=== PATIENT | female | born 1945 | race Caucasian/White ===

== ENCOUNTER → 2019-05-11 13:54 | Outpatient (CLI) | payer MEDICARE, SELFPAY ==
--- NOTE | ~2019-05-11 | US_ITS ---
US thyroid INDICATION: Dysphasia and enlarged thyroid. TECHNIQUE: Real-time sonographic images of the thyroid gland were obtained. COMPARISON: Ultrasound dated 06/22/2016 FINDINGS: The right thyroid lobe measures 6.2 x 4 x 3.2 cm. The left thyroid lobe measures 4.8 x 2 x 1.2 cm. In the right lobe there is a complex mass which is partially solid and cystic measuring 4 x 3.7 x 3.2 cm compared with 3.9 x 3.3 x 3.3 cm on prior examination. In the left lobe there is a 7 mm hypoechoic nodule, likely benign. IMPRESSION: 1. Multinodular goiter. Slight increased size of dominant right complex thyroid mass measuring 4 cm maximum dimension. Ultrasound-guided fine-needle aspiration biopsy recommended. Reviewed, dictated and finalized at location A. MAN IMPRESSION: 1. Multinodular goiter. Slight increased size of dominant right complex thyroi d mass measuring 4 cm maximum dimension. Ultrasound-guided fine-needle aspirati on biopsy recommended.
== END ==
PROVIDERS: PCP Internal Medicine; Visit Provider Otolaryngology
DX: E04.2 Nontoxic multinodular goiter (principal)
CPT/HCPCS: 76536

== ENCOUNTER → 2020-05-16 15:06 | Outpatient (CLI) | payer MEDICARE, SELFPAY ==
--- NOTE | ~2020-05-16 | MM_ITS ---
EXAMINATION: MM screening [facility] BI w kobe HISTORY: Screening mammogram TECHNIQUE: Craniocaudal and mediolateral oblique 3-D tomosynthesis images were obtained and synthetic 2-D images were generated. CAD analysis was submitted and interpreted. COMPARISON: 03/20/2019, 02/22/2019, 07/04/2014 BREAST PARENCHYMAL COMPOSITION: The breasts are almost entirely fatty. FINDINGS: A stable asymmetry is present in the inner left breast on the craniocaudal view. There is n o evidence of suspicious mass, calcification, or architectural distortion to suggest malignancy in ei ther breast. There has been no suspicious interval change. IMPRESSION: 1. No mammographic evidence of malignancy. 2. Recommend routine screening mammography in one year. BI-RADS Category 2: Benign finding(s). Reviewed, dictated and finalized at location A. OP INFRASTRUCTURE ARCHITECT
== END ==
PROVIDERS: PCP Internal Medicine; Visit Provider Internal Medicine
DX: Z12.31 Encounter for screening mammogram for malignant neoplasm of breast (principal)
CPT/HCPCS: 77063; 77067

== ENCOUNTER 2020-08-22 09:18 | Outpatient (CLI) | payer MEDICARE, SELFPAY ==
--- NOTE | ~2020-08-22 | US_ITS ---
EXAMINATION: US abdomen limited DATE: 08/22/2020 09:58 INDICATION: Abnormal liver function tests. TECHNIQUE: Multiple grayscale and Doppler ultrasound images of the abdomen were obtained. COMPARISON: None FINDINGS: The visualized portions of the head and body of the pancreas are normal. The liver is phyllis l without focal lesion. No liver surface nodularity. There is normal flow in main portal vein. The ga llbladder is contracted. No gallstones or sonographic Vega sign. The common duct is dilated to 11 m m. IMPRESSION: 1. Dilated common duct. Consider MRCP without and with contrast. Reviewed, dictated and finalized at location B.
== END 2020-08-22 09:19 | disposition home or self-care (01) ==
LOC: ANHIMG 09:18
PROVIDERS: PCP Internal Medicine; Visit Provider Nurse Practitioner
DX: R79.89 Other specified abnormal findings of blood chemistry (principal)
CPT/HCPCS: 76705

== ENCOUNTER 2021-03-03 14:37 | Outpatient (CLI) | payer MEDICARE, SELFPAY ==
--- NOTE | ~2021-03-03 | US_ITS ---
EXAMINATION: US thyroid DATE: 03/03/2021 15:06 INDICATION: Nontoxic single thyroid nodule. TECHNIQUE: Multiple ultrasound images of the thyroid were obtained. COMPARISON: Ultrasound 05/11/2019, 06/22/16 FINDINGS: The right thyroid lobe measures 5.5 x 3.3 x 4.2 cm. The left thyroid lobe measures 4.5 x 1.7 x 1.2 c m. In the right thyroid lobe, there is a 4.2 cm mixed cystic and solid, hypoechoic, rsyhm-jgus-lpzj nodule with irregular margin without echogenic foci (TI-RADS TR4). In the left thyroid lobe, there is a 6 mm mixed cystic and solid, hypoechoic, bnivy-hazr-phau nodule with lobular margin without echoge miki foci (TR4). IMPRESSION: 1. Thyroid nodules, stable from 06/22/2016, likely benign. Reviewed, dictated and finalized at location B. S PLANNING COORDINATOR
== END 2021-03-03 14:38 | disposition home or self-care (01) ==
LOC: ANHIMG 14:40
PROVIDERS: PCP Internal Medicine; Visit Provider Nurse Practitioner
DX: E04.2 Nontoxic multinodular goiter (principal)
CPT/HCPCS: 76536

== ENCOUNTER → 2021-07-22 13:43 | Outpatient (CLI) | payer MEDICARE, SELFPAY ==
--- NOTE | ~2021-07-22 | MM_ITS ---
EXAMINATION: MM screening [facility] BI w kobe HISTORY: Screening mammogram TECHNIQUE: Craniocaudal and mediolateral oblique 3-D tomosynthesis images were obtained and synthetic 2-D images were generated. CAD analysis was submitted and interpreted. COMPARISON: May 16, 2020 bilateral screening mammogram 03/30/2019 diagnostic left mammogram and limited left breast ultrasound 02/22/2019 bilateral screening mammogram BREAST PARENCHYMAL COMPOSITION: There are scattered areas of fibroglandular density. FINDINGS: There is no evidence of suspicious mass, calcification, or architectural distortion to sugg est malignancy in either breast. There has been no suspicious interval change. IMPRESSION: 1. No mammographic evidence of malignancy. 2. Recommend routine screening mammography in one year. BI-RADS Category 1: Negative Reviewed, dictated and finalized at location A.
== END ==
PROVIDERS: PCP Internal Medicine; Visit Provider Internal Medicine
DX: Z12.31 Encounter for screening mammogram for malignant neoplasm of breast (principal)
CPT/HCPCS: 77063; 77067

== ENCOUNTER 2021-08-26 14:55 | Outpatient (CLI) | payer MEDICARE, SELFPAY ==
--- NOTE | ~2021-08-26 | DEXA_ITS ---
Bone Density Report Name: ARIEL GUAJARDO Age: 76 Sex: Female Ethnicity: White Date of : 1945 Indication: postmenopausal; screening for osteoporosis; height loss; Referring Provider: PATRICIO HERNANDEZ Study: Bone densitometry was performed. Exam Date: August 26, 2021 Accession number: [id number] Bone Density: Region BMD T-score Z-score Classification AP Spine(L1, L4) 1.374 3.1 5.4 Normal Femoral Neck (Left) 0.697 -1.4 0.7 Osteopenia Total Hip (Left) 0.810 -1.1 0.7 Osteopenia Femoral Neck (Right) 0.659 -1.7 0.3 Osteopenia Total Hip (Right) 0.871 -0.6 1.2 Normal Total Hip Mean 0.840 -0.9 1.0 Normal World Health Organization criteria for BMD impression classify patients as: Normal (T-score at or above -1.0), Osteopenia (T-score between -1.0 and -2.5), or Osteoporosis (T-score at or below -2.5). 10-year Fracture Risk(1): Major Osteoporotic Fracture 11% Hip Fracture 2.3% Reported Risk Factors: [place] (), Neck BMD=0.659, BMI=31.3 (1) FRAX(R) Version 3.08. Fracture probability calculated for an untreated patient. Fracture probability may be lower if the patient has received treatment. Clinical Information Provided by Patient: Patient maximum height was 61 Menopause Age: 52 Drinks caffeinated beverages Onset of menses at age 17 Number of children 0 Impression: The patient has low bone mass, based on the Right Femoral Neck T-score. The patient has an estimated ten-year risk of hip fracture of 2.3% and an estimated ten-year risk of major fracture of 11%, based on the WHO FRAX algorithm. Discussion: BONE DENSITY IS LOW AT ONE OR MORE SKELETAL SITES. This patient's lowest T-score is low at one or more skeletal sites. It meets the World Health Organization's (WHO) criteria for ?low bone mass? (T-score between -1.0 and -2.5). The patient's 10-year risk of fracture as calculated by FRAX is less than the threshold where pharmacological therapy is recommended by the National Osteoporosis Foundation (NOF). However, all treatment decisions require clinical judgment and consideration of individual patient factors, including patient preferences, comorbidities, previous drug use, risk factors not captured in the FRAX model (e.g., frailty, falls, vitamin D deficiency, increased bone turnover, interval significant decline in bone density) and possible under or overestimation of fracture risk by FRAX. The patient should follow a healthful lifestyle (good nutrition with adequate calcium and vitamin D, and appropriate weight-bearing exercise). Follow-Up: Consider repeating this study in 2 to 3 years to reassess this patient's status, or sooner if there is some new clinical indication. Reported by: [facility] on 08/26/2021 3:22:00 PM.
== END 2021-08-26 14:56 | disposition home or self-care (01) ==
LOC: ANHIMG 15:00
PROVIDERS: PCP Internal Medicine; Visit Provider Nurse Practitioner
DX: Z78.0 Asymptomatic menopausal state (principal); M85.852 Other specified disorders of bone density and structure, left thigh; M85.851 Other specified disorders of bone density and structure, right thigh
CPT/HCPCS: 77080

== ENCOUNTER 2022-05-11 16:20 | Emergency (ER) | payer MEDICARE, SELFPAY ==
[2022-05-11 16:23] VITALS: BP 181/88; PULSE 105; RESP 15; TEMP 36.9; O2SAT 100
--- NOTE | 2022-05-11 17:04 | ED.GENADULT ---
HPI - General Adult General Chief complaint: Extremity Problem,Nontraumatic Stated complaint: back pain Time Seen by Provider: 05/11/22 16:51 History of Present Illness HPI narrative: 36-year-old female history of hypertension presents to the emergency room for evaluation of lower back pain. Patient states she has been experiencing low back pain that radiates into her right leg and terminates at her mccall for 2 days. Denies any injury or trauma. States ambulation makes the pain worse. Patient describes the pain as a shooting sensation. Patient does admit to a history of sciatica. Denies any difficulties or changes to her bowel or bladder habits. No numbness or tingling lower extremities. No saddle anesthesia. Related Data Home Medications Medication Instructions Recorded Confirmed aspirin 81 mg tablet,delayed 81 mg PO DAILY 08/09/19 04/16/22 release (Aspir-) omega-3 fatty acids 1,000 mg 1,000 mg PO BID 08/09/19 04/16/22 capsule (Fish Oil Concentrate) ibuprofen 200 mg tablet 200 mg PO Q6H PRN 08/10/19 04/16/22 calcium carbonate 500 mg calcium 500 mg PO DAILY 03/10/22 04/16/22 (1,250 mg) tablet Allergies Allergy/AdvReac Type Severity Reaction Status Date / Time No Known Allergies Allergy Verified 04/16/22 14:15 Review of Systems Review of Systems: CONSTITUTIONAL: Denies fever, chills, or sweats. EYES: Denies visual changes, redness, or discharge. ENT: Denies rhinorrhea, congestion, sore throat, or otalgia. CARDIOVASCULAR: Denies chest pain, palpitations, or edema. RESPIRATORY: Denies cough or dyspnea. GASTROINTESTINAL: Denies abdominal pain, nausea, vomiting, or diarrhea. GENITOURINARY: Denies dysuria or hematuria. SKIN: Denies rash or itching. MUSCULOSKELETAL: Reports lower back pain NEUROLOGIC: Denies headache, numbness, dizziness, or weakness. PSYCHIATRIC: Denies anxiety or depression. [facility] Past Medical History Medical History Back pain Shoulder pain Thyroid nodule Surgical History Surgical History History of hernia repair Hx of cataract surgery Family History Family History Father Family history of diabetes mellitus in first degree relative Sibling Family history of diabetes mellitus in first degree relative Social History Social History Smoking status: Never smoker Second hand tobacco smoke exposure: No Alcohol intake: never Substance use: never Substance use type: does not use Lack of Transportation: No Lack of Food: Never True Current Housing: I Have Housing Concerned About Future Housing: No Difficulty Paying Gas/Electric Bills: No Difficulty Paying for Meds: No Currently Unemployed: No Education: High School Diploma/GED Difficulty w/ Childcare or Family Care: No Exam Narrative: GENERAL: Well-appearing, well-nourished, no physical limitations, and in no acute distress. HEAD: Normocephalic, atraumatic. EYES: Conjunctivae normal, PERRLA and EOMI. CHEST: Clear to auscultation. No respiratory distress. No wheezes rales or rhonchi. HEART: Regular rate and rhythm. No murmur heard. Normal peripheral pulses. BACK: No midline lumbar tenderness, step-offs, bony abnormality; LROM with rotation and lateral bend. +SLE RLE. Neurovascular is intact distally EXTREMITIES: Normal range of motion. No edema. No clubbing or cyanosis SKIN: Warm, dry, no rash. No noted wounds NEURO: No focal deficits. Alert and oriented x3. MAEW. CN's II-XI intact bilaterally, antalgic gait. PSYCH: Cooperative. Normal mood and affect. Course Vital Signs Vital signs: Vital Signs Temperature 36.9 C 05/11/22 16:23 Pulse Rate 105 H 05/11/22 16:23 Respiratory Rate 15 05/11/22 16:23 Blood Pressure 181/88 H 05/11/22 16:23 Pulse Oximetry 100 05/11/22 16
[2022-05-11 17:51] VITALS: BP 156/89; PULSE 98; RESP 14; O2SAT 99
== END 2022-05-11 17:52 | disposition home or self-care (01) ==
PROVIDERS: Emergency Provider Nurse Practitioner Family; PCP Internal Medicine
DX: M54.50 Low back pain, unspecified (principal); M79.604 Pain in right leg; I10 Essential (primary) hypertension; Z98.49 Cataract extraction status, unspecified eye
CPT/HCPCS: 96372; 99283; J1100

== ENCOUNTER 2022-05-19 09:20 | Emergency (ER) | payer MEDICARE, SELFPAY ==
--- NOTE | ~2022-05-19 | CT_ITS ---
Noncontrast CT scan of the lumbar spine MEDICAL HISTORY: Back pain radiating to right leg TECHNIQUE: Axial noncontrast imaging of the lumbar spine was performed. Sagittal and coronal reformat carmelo images were constructed. Dose reduction technique was used on this scan by utilizing automated ex posure control and iterative reconstruction technique. FINDINGS: No fracture identified. Probable minimal grade 1 retrolisthesis of L2 over L3. At L1-L2, there is severe degenerative disc narrowing. There is facet arthropathy and mild disc osteo phyte complex. No keila spinal canal stenosis evident. There is probable moderate to advanced left ne ural foraminal narrowing. Right neural foramen preserved. At L2-L3, there is severe degenerative disc narrowing. Disc osteophyte complex and facet arthropathy result in probable mild to possibly moderate central canal stenosis. There is moderate right neural f oraminal narrowing and mild left neural foraminal narrowing. At L3-L4, there is advanced degenerative disc narrowing. Disc bulge and facet arthropathy contribute to probable mild central canal stenosis. Neural foramina are relatively well-preserved. At L4-L5, disc bulge and facet arthropathy result in probable severe thecal sac compression. There is severe right neural foraminal narrowing and moderate left neural foraminal narrowing. At L5-S1, disc osteophyte complex is present, with facet arthropathy. No keila spinal canal stenosis. There is advanced bilateral neural foraminal narrowing. Paravertebral soft tissues are unremarkable. IMPRESSION: Moderate to advanced degenerative spondylosis, as detailed above. There is multifactorial probable se lorrie thecal sac compression L4-L5. There is multilevel neural foraminal narrowing. Additional degener ative changes, as detailed above. Reviewed, dictated and finalized at [facility]. ER MAN IMPRESSION: Moderate to advanced degenerative spondylosis, as detailed above. There is mult ifactorial probable severe thecal sac compression L4-L5. There is multilevel ne ural foraminal narrowing. Additional degenerative changes, as detailed above.
[2022-05-19 09:24] VITALS: BP 176/78; PULSE 70; RESP 16; TEMP 36.4; O2SAT 100
--- NOTE | 2022-05-19 10:07 | ED.BACK ---
HPI - Back Pain/Injury General Chief Complaint: Back Pain/Injury <Traci Martinez PA-C - Last Filed: 05/19/22 11:29> Stated Complaint: back pain, sciatica <Traci Martinez PA-C - Last Filed: 05/19/22 11:29> Time Seen by Provider: 05/19/22 09:51 <Traci Martinez PA-C - Last Filed: 05/19/22 11:29> Source: patient <DRE Avila Last Filed: 05/19/22 11:29> Mode of arrival: wheelchair <DRE Avila Last Filed: 05/19/22 11:29> Limitations: no limitations <Traci Martinez PA-C - Last Filed: 05/19/22 11:29> History of Present Illness HPI Narrative: This is a 76 year old female that presents to the ER for low back pain ongoing over the last couple of weeks. Reports right sided low back pain that radiates down her right leg. The pain is sharp and shooting and worse with movement and walking. She has seen her PCP and been to the ER for this. Has been taking a muscle relaxer and over the counter pain medications with little relief. Was started on a steroid taper by her PCP 3 days ago. She took Ibuprofen this morning for pain. Also reports a rash that has been present on her feet for the last month that she has been treating at home. She saw her PCP for this and was prescribed a steroid cream. Reports it is not painful or itchy. Does seem to be improving. Denies fever, lower extremity edema, weakness, numbness, or bowel/bladder incontinence. <Traci Martinez PA-C - Last Filed: 05/19/22 11:29> Related Data Home Medications: Home Medications Medication Instructions Recorded Confirmed aspirin 81 mg tablet,delayed 81 mg PO DAILY 08/09/19 05/17/22 release (Aspir-) omega-3 fatty acids 1,000 mg 1,000 mg PO BID 08/09/19 05/17/22 capsule (Fish Oil Concentrate) ibuprofen 200 mg tablet 200 mg PO Q6H PRN 08/10/19 05/17/22 calcium carbonate 500 mg calcium 500 mg PO DAILY 03/10/22 05/17/22 (1,250 mg) tablet <Traci Martinez PA-C - Last Filed: 05/19/22 11:29> Allergies/Adverse Reactions: Allergies Allergy/AdvReac Type Severity Reaction Status Date / Time No Known Allergies Allergy Verified 05/15/22 09:05 <Traci Martinez PA-C - Last Filed: 05/19/22 11:29> Review of Systems Review of Systems: CONSTITUTIONAL: Denies fever SKIN: Reports rash. Denies itching. MUSCULOSKELETAL: Reports back pain, joint pain, and myalgia. NEUROLOGIC: Denies numbness, or weakness. <Traci Martinez PA-C - Last Filed: 05/19/22 11:29> All systems reviewed & are unremarkable except as noted in HPI and below <Traci Martinez PA-C - Last Filed: 05/19/22 11:29> [facility] Past Medical History Medical History: Medical History (Updated 05/19/22 @ 11:26 by Traci Martinez PA-C) Chronic radicular low back pain Hyperlipidemia Hypertension Shoulder pain Thyroid nodule <Traci Martinez PA-C - Last Filed: 05/19/22 11:29> Surgical History Surgical History: Surgical History History of hernia repair Hx of cataract surgery <Traci Martinez PA-C - Last Filed: 05/19/22 11:29> Family History Family History: Family History Father Family history of diabetes mellitus in first degree relative Sibling Family history of diabetes mellitus in first degree relative <Traci Martinez PA-C - Last Filed: 05/19/22 11:29> Social History Social History: Social History Smoking status: Never smoker Second hand tobacco smoke exposure: No Alcohol intake: never Substance use: never Substance use type: does not use Lack of Transportation: No Lack of Food: Never True Current Housing: I Have Housing Concerned About Future Housing: No Difficulty Paying Gas/Electric Bills: No Difficulty Paying for Meds: No Currently Unemployed: No Education: High School Diploma/GED Difficulty w/ Childcare or
[2022-05-19] MEDS: diazePAM INJ (*CRX) 10 MG/2 ML SYRINGE 5 MG IM (10:18)
[2022-05-19] MEDS: ACETAMINOPHEN 500 MG TABLET 1000 MG PO (10:18)
[2022-05-19 10:24] LABS: Basophils Absolute Auto 0.1 K/mm3 (0.0-0.1); Basophils Percent Auto 0.6 % (0.2-1.2); Eosinophils Absolute Auto 0.1 K/mm3 (0-0.3); Eosinophils Percent Auto 0.6 % (0-4.4); Hematocrit 39.8 % (37.0-47.0); Hemoglobin 13.6 g/dL (12.0-15.0); Immature Granulocyte Absolute 0.09 K/mm3 (0.00-0.031); Immature Granulocyte Percent A 0.6 % (0-0.5); Lymphocytes Absolute Auto 3.01 K/mm3 (0.9-3.2); Lymphocytes Percent Auto 20.8 % (18.3-44.2); Mean Corpuscular HGB Conc 34.2 g/dl (32-36); Mean Corpuscular Hemoglobin 30.9 pg (26-34); Mean Corpuscular Volume 90.5 fl (80-100); Mean Platelet Volume 8.4 fl (7.4-10.4); Monocytes Absolute Auto 1.3 K/mm3 (0.1-0.6); Monocytes Percent Auto 8.6 % (2.6-8.5); Neutrophils Percent Auto 68.8 % (45.5-73.1); Platelet Count Result 334 k/mm3 (150-375); Red Cell Distribution Width 12.2 % (11.5-14.5); White Blood Count 14.5 K/mm3 (4.5-10.0)
[2022-05-19 10:34] LABS: Partial Thromboplastin Time 23.2 SECONDS (22.3-36.8); Prothrombin Time 12.7 Seconds (11.1-14.7)
[2022-05-19 10:37] LABS: Alanine Aminotransferase 46 U/L (6-35); Albumin Level 4.6 g/dL (3.5-5.1); Alkaline Phosphatase 151 U/L (38-126); Anion Gap 8 mmol/L (8-16); Aspartate Amino Transferase 45 U/L (14-36); Blood Urea Nitrogen 18 mg/dL (7-17); Calcium 9.3 mg/dL (8.4-10.2); Carbon Dioxide 24 mmol/L (22-30); Chloride 102 mmol/L (98-107); Estimated Glomerular Filt Rate > 60; Glucose 98 mg/dL (65-110); Potassium 3.4 mmol/L (3.4-5.0); Sodium 134 mmol/L (137-145)
[2022-05-19 11:54] VITALS: PULSE 76; RESP 18; O2SAT 98
== END 2022-05-19 11:56 | disposition home or self-care (01) ==
PROVIDERS: Physician Assistant; Emergency Provider Emergency Medicine; PCP Internal Medicine
DX: M54.16 Radiculopathy, lumbar region (principal); R21 Rash and other nonspecific skin eruption; E78.5 Hyperlipidemia, unspecified; I10 Essential (primary) hypertension; Z98.49 Cataract extraction status, unspecified eye; Z79.82 Long term (current) use of aspirin
CPT/HCPCS: 36415; 72131; 80053; 85025; 85610; 85730; 99284; A9270; J3360

== ENCOUNTER 2024-06-16 09:54 | Outpatient (CLI) | payer MEDICARE, SELFPAY ==
--- NOTE | ~2024-06-16 | MM_ITS ---
EXAMINATION: MM screening [facility] BI w kobe HISTORY: Screening TECHNIQUE: Craniocaudal and mediolateral oblique 3-D tomosynthesis images were obtained and synthetic 2-D images were generated. CAD analysis was submitted and interpreted. COMPARISON: 07/22/2021 and dating back to 02/22/2019 BREAST PARENCHYMAL COMPOSITION: There are scattered areas of fibroglandular density. FINDINGS: Punctate and bulky calcifications are detected bilaterally, stable and benign in appearance . Stable parenchymal pattern without suspicious microcalcifications, architectural distortion, discrete masses or significant asymmetry. IMPRESSION: 1. No mammographic/tomographic evidence of malignancy. 2. Recommend routine screening mammography in one year. BI-RADS Category 2: Benign finding(s). Reviewed, dictated and finalized at location A. AL SERVICES COORDINATOR
== END 2024-06-16 09:55 | disposition home or self-care (01) ==
PROVIDERS: PCP Family Medicine; Visit Provider Family Medicine
DX: Z12.31 Encounter for screening mammogram for malignant neoplasm of breast (principal)
CPT/HCPCS: 77063; 77067

== ENCOUNTER 2024-08-25 00:42 | Day surgery (SDC) | payer MEDICARE, SELFPAY ==
[2024-08-16 11:15] VITALS: BMI 25.4
--- OUTSIDE RECORDS SUMMARY | 2024-08-25 00:46 | XMS_ITS | Continuity of Care Document ---
Author Organization [facility] Address [address] [place] [address] [address] [place] [address] Phone Care Team Providers Care Him Director Name Role Phone Alvarez Cordero MD, MD Unavailable Unavailable Procedures Procedure Date CATARACT SURG W/IOL, 1 STAGE CATARACT SURG W/IOL, 1 STAGE No Charge Visit OFFICE/OUTPATIENT VISIT, NEW OPHTHALMIC BIOMETRY OPHTHALMIC BIOMETRY SPECIAL EYE EXAM, INITIAL SPECIAL EYE EXAM, INITIAL Advance Directives Directive Yes / No Effective Date File Name No Information Encounters Encounter Description Practice Location Reason(s) For Visit Diagnoses Date Provider Providers Copied on Encounter Ophthalmology [facility], [address] [place] [address], [id number], tel:[phone] [address] [place] [address] No Information 3 Gil Pino. [address], [address], [place], [place], [id number] , [place]. tel:[phone] Referring Provider: Alvarez Olivas, [address], [place], [address] . tel:[phone] [facility], [address] [place] [address], [id number], tel:[phone] [address] [place] [address] Surgery Bryce No Information 3 Gil Pino. [address], [id number] , . tel:[phone] Referring Provider: Alvarez Cordero MD P, [address], [place], [address] . tel:[phone] [facility], [address] [place] [address], [id number], tel:[phone] OPH CONSULT ZAYNAB VICTOR No Information 3 Gil Pino. [address], [address], [place], [id number] , . tel:[phone] Referring Provider: Alvarez Cordero MD P, [address], [place], [address] . tel:[phone] OFFICE/OUTPA TIENT VISIT, [facility], [address] [place] [address], [id number], tel:[phone] [facility] No Information 3 Gil Pino. [address], [address], [place], [place], [id number] , . tel:[phone] Referring Provider: Alvarez Cordero MD P, [address], [place], [address] . tel:[phone] Family History Family Member Type Diagnosis Age At Onset No Information Payers Payer name Insurance type Covered democrat ID Authoriza tion(s) Medicare Complete Advantage [facility] [id number] Social History Type Description Quantity Date Captured Comments Sex Female Smoking Status No Information Chief Complaint And Reason For Visit No Information Reason For Referral Reason For Referral No Information History Of Present Illness Encounter Date Complaint History Of Prese nt Illness No Information Functional Status Date Functional Assessmen t No Information Instructions Date Instruction Additional Infor mation No Information Assessments Type Assessment Date No Information Patient Care Teams Name Effective Dates (start - stop) Status Members No Information
[2024-08-25 08:54] VITALS: BP 127/70; PULSE 106; RESP 18; TEMP 36.6; O2SAT 99; BMI 27.1
[2024-08-25] MEDS: LACTATED RINGERS 1,000 ML 150 ML IV CONT (09:03)
--- NOTE | 2024-08-25 09:25 | WPDANESEPPF ---
Anes - Initial Pre Proc Eval Procedure: Operation Date: 08/25/24 10:00 Proposed Procedures p Screening Colonoscopy - Rob Figueroa MD Date/Time: 08/25/24 09:25 Surgeon: Rob Figueroa MD Pre Op Diagnosis: screening malignant neoplasm of colon Patient Data Age: 79 Gender: F Height: 1.52 m Weight: 62.9 kg Last Vital Signs Temp 36.6 C 08/25/24 08:54 Pulse 106 H 08/25/24 08:54 Resp 18 08/25/24 08:54 BP 127/70 08/25/24 08:54 Pulse Ox 99 08/25/24 08:54 O2 Del Method Room Air 08/25/24 08:54 Allergies Allergy/AdvReac Type Severity Reaction Status Date / Time No Known Allergies Allergy Verified 08/25/24 08:52 Home Medications Medication Instructions Recorded Confirmed Type aspirin 81 mg tablet,delayed 81 mg PO DAILY 08/09/19 08/25/24 History release (Aspir-) multivitamin 1 tablet PO DAILY #90 tabs 08/09/19 08/25/24 Rx omega-3 fatty acids 1,000 mg 1,000 mg PO BID 08/09/19 08/25/24 History capsule (Fish Oil Concentrate) ibuprofen 200 mg tablet 200 mg PO Q6H PRN pain 08/10/19 08/25/24 History calcium carbonate 500 mg PO DAILY 03/10/22 08/25/24 History atorvastatin 80 mg tablet See Rx Instructions .Route 01/24/24 08/25/24 Rx .COMPLEX #100 tabs hydrochlorothiazide 25 mg tablet See Rx Instructions .Route 01/24/24 08/25/24 Rx .COMPLEX #100 tabs lisinopril 40 mg tablet See Rx Instructions .Route 05/24/24 08/25/24 Rx .COMPLEX #100 tabs Patient hx anesthesia problems: none Family hx anesthesia problems: none Results Review: All pre-operative results and documents have been reviewed as part of the pre-operative evaluation. [facility] Past Medical History Medical History Chronic radicular low back pain Thyroid nodule Hyperlipidemia Hypertension Shoulder pain Surgical History Surgical History History of hernia repair Hx of cataract surgery Family History Family History Father Family history of diabetes mellitus in first degree relative Hypertension Sibling Family history of diabetes mellitus in first degree relative Hypertension Mother Hypertension Social History Social History Smoking status: Never smoker Second hand tobacco smoke exposure: No Alcohol intake: never Substance use: never Substance use type: does not use Lack of Transportation: No Lack of Food: Never True Current Housing: I Have Housing Concerned About Future Housing: No Difficulty Paying Gas/Electric Bills: No Difficulty Paying for Meds: No Currently Unemployed: No Education: High School Diploma/GED Difficulty w/ Childcare or Family Care: No Anes - Eval Final PreProcedure Day of Procedure 08/25/24 09:25 Patient weight: overweight Heart: regular rate and rhythm Lungs: decreased breath sounds Airway: Mallampati scale class III Neurological: lethargic Last oral intake: >/= 8 hours ASA classification: III Emergent: no Anesthetic plan: proceed Anesthesia type and monitoring: general GIVS and standard monitoring Results Review: All pre-operative results and documents have been reviewed as part of the pre-operative evaluation. Informed Consent: The patient's anesthetic plan and its attendant risks and benefits were discussed with the patient/family/POA. Questions were solicited and answers provided to the satisfaction of the patient/family/POA.
--- NOTE | 2024-08-25 09:54 | PM.HPGS ---
History of Present Illness History of Present Illness Consent: Risks, benefits, and alternatives have been discussed and questions answered. Patient agrees to proceed with procedure. Chief complaint: screening malignant neoplasm of colon Narrative: Vika Pagan is a 79 year old female here for screening colonoscopy, last one 10 years ago Review of Systems Review of Systems: All systems reviewed & are unremarkable except as noted in HPI and below PMFSH Past Medical History Medical History Chronic radicular low back pain Thyroid nodule Hyperlipidemia Hypertension Shoulder pain Surgical History Surgical History History of hernia repair Hx of cataract surgery Family History Family History Father Family history of diabetes mellitus in first degree relative Hypertension Sibling Family history of diabetes mellitus in first degree relative Hypertension Mother Hypertension Social History Social History Smoking status: Never smoker Second hand tobacco smoke exposure: No Alcohol intake: never Substance use: never Substance use type: does not use Lack of Transportation: No Lack of Food: Never True Current Housing: I Have Housing Concerned About Future Housing: No Difficulty Paying Gas/Electric Bills: No Difficulty Paying for Meds: No Currently Unemployed: No Education: High School Diploma/GED Difficulty w/ Childcare or Family Care: No Meds Home Medications and Allergies Home Medications Medication Instructions Recorded Confirmed Type aspirin 81 mg tablet,delayed 81 mg PO DAILY 08/09/19 08/25/24 History release (Aspir-) multivitamin 1 tablet PO DAILY #90 tabs 08/09/19 08/25/24 Rx omega-3 fatty acids 1,000 mg 1,000 mg PO BID 08/09/19 08/25/24 History capsule (Fish Oil Concentrate) ibuprofen 200 mg tablet 200 mg PO Q6H PRN pain 08/10/19 08/25/24 History calcium carbonate 500 mg PO DAILY 03/10/22 08/25/24 History atorvastatin 80 mg tablet See Rx Instructions .Route 01/24/24 08/25/24 Rx .COMPLEX #100 tabs hydrochlorothiazide 25 mg tablet See Rx Instructions .Route 01/24/24 08/25/24 Rx .COMPLEX #100 tabs lisinopril 40 mg tablet See Rx Instructions .Route 05/24/24 08/25/24 Rx .COMPLEX #100 tabs Allergies Allergy/AdvReac Type Severity Reaction Status Date / Time No Known Allergies Allergy Verified 08/25/24 08:52 Vital Signs Vital Signs - 24 hr 08/25/24 08:54 Temperature 97.8 F Pulse Rate 106 H Respiratory Rate 18 Blood Pressure 127/70 Pulse Oximetry 99 Oxygen Delivery Room Air Exam Const: General: comfortable and no acute distress HENMT: Face/Nose/Sinus: Normal nares present Eyes: General: appearance normal, both eyes and all related structures Neck: Neck: no JVD Resp: Auscultation: clear to auscultation bilaterally Cardio: Rate: regular rate Rhythm: regular rhythm GI: Inspection: non-distended GI Palp: Yes Soft to palpation Skin: General skin exam: normal color Neuro: General: gait normal Speech: normal speech Extrem: General: normal to inspection Psych: Mental Status: mental status grossly normal Assessment and Plan Assessment and plan (1) Colon cancer screening: Code(s): Z12.11 - Encounter for screening for malignant neoplasm of colon Status: Acute Assessment and Plan: colonoscopy
[2024-08-25 10:14] VITALS: BP 75/47; PULSE 88; RESP 18; O2SAT 93
[2024-08-25 10:24] VITALS: BP 79/55; PULSE 86; RESP 18; O2SAT 95
[2024-08-25 10:34] VITALS: BP 84/57; PULSE 80; RESP 18; O2SAT 96
== END 2024-08-25 10:58 | disposition home or self-care (01) ==
PROVIDERS: PCP Family Medicine; Referring Provider Family Medicine; Visit Provider Internal Medicine Gastroenterology
PROC: 0DJD8ZZ Inspection of Lower Intestinal Tract, Via Natural or Artificial Opening Endoscopic (ICD-10-PCS; CPT 45378; principal; 2024-08-25 10:00)
DX: Z12.11 Encounter for screening for malignant neoplasm of colon (principal); D12.8 Benign neoplasm of rectum; D12.7 Benign neoplasm of rectosigmoid junction; K57.30 Diverticulosis of large intestine without perforation or abscess without bleeding; K64.8 Other hemorrhoids
CPT/HCPCS: 45385; 88305; J2704; J7120

== ENCOUNTER 2025-01-19 12:49 | Outpatient (CLI) | payer MEDICARE, SELFPAY ==
--- NOTE | ~2025-01-19 | DEXA_ITS ---
Bone Density Report Name: ARIEL GUAJARDO Age: 79 Sex: Female Ethnicity: White Date of : 1945 Indication: osteopenia; height loss; Referring Provider: MAXIMINO ARAIZA Study: Bone densitometry was performed. Exam Date: January 19, 2025 Accession number: [id number] Bone Density: Region BMD T-score Z-score Classification AP Spine(L1, L3, L4) 1.425 3.4 6.0 Normal Femoral Neck (Left) 0.696 -1.4 0.8 Osteopenia Total Hip (Left) 0.811 -1.1 0.8 Osteopenia Femoral Neck (Right) 0.619 -2.1 0.1 Osteopenia Total Hip (Right) 0.824 -1.0 1.0 Normal Total Hip Mean 0.817 -1.1 0.9 Osteopenia World Health Organization criteria for BMD impression classify patients as: Normal (T-score at or above -1.0), Osteopenia (T-score between -1.0 and -2.5), or Osteoporosis (T-score at or below -2.5). 10-year Fracture Risk(1): Major Osteoporotic Fracture 14% Hip Fracture 4.0% Reported Risk Factors: [place] (), Neck BMD=0.619, BMI=29.3 (1) FRAX(R) Version 3.08. Fracture probability calculated for an untreated patient. Fracture probability may be lower if the patient has received treatment. Previous Exams: -- Region Exam Age BMD T-score BMD Change BMD Change Date g/cm2 vs Baseline vs Previous -- Total Hip(Left) 01/19/2025 79 0.811 -1.1 0.1% 0.1% 08/26/2021 76 0.810 -1.1 Total Hip(Right) 01/19/2025 79 0.824 -1.0 -5.4%* -5.4%* 08/26/2021 76 0.871 -0.6 -- *Denotes significance at 95% confidence level, LSC for Total Hip = 0.027 g/cm2 Clinical Information Provided by Patient: Has used the following medications: Calcium Patient maximum height was 59 Menopause Age: 52 No regular weight bearing exercise Drinks caffeinated beverages Onset of menses at age 18 Number of children 0 Impression: The patient has low bone mass, based on the Right Femoral Neck T-score. The patient has an estimated ten-year risk of hip fracture of 4% and an estimated ten-year risk of major fracture of 14%, based on the WHO FRAX algorithm. The BMD for the Total Hip(Right) decreased, changing by -5.4% since the last DXA exam. Discussion: BONE DENSITY IS LOW AT ONE OR MORE SKELETAL SITES. THE PATIENT'S BMD AND CLINICAL RISK FACTORS CONTRIBUTE TO THIS PATIENT'S INCREASED RISK OF FRACTURE. This patient's lowest T-score is low at one or more skeletal sites. It meets the World Health Organization's (WHO) criteria for ?low bone mass? (T-score between -1.0 and -2.5). The patient's 10-year risk of hip fracture as calculated by FRAX exceeds the threshold where pharmacological therapy is recommended by the National Osteoporosis Foundation (NOF). However, all treatment decisions require clinical judgment and consideration of individual patient factors, including patient preferences, comorbidities, previous drug use, risk factors not captured in the FRAX model (e.g., frailty, falls, vitamin D deficiency, increased bone turnover, interval significant decline in bone density) and possible under or overestimation of fracture risk by FRAX. The patient should follow a healthful lifestyle (good nutrition with adequate calcium and vitamin D, and appropriate weight-bearing exercise). Follow-Up: Consider a repeat BMD and Vertebral Fracture Assessment (VFA) exam in 2 years or sooner if medically necessary, to reassess this patient's status. Reported by: MARIO on 01/19/2025 1:24:00 PM. Reviewed, dictated and finalized at location A.
== END 2025-01-19 12:50 | disposition home or self-care (01) ==
LOC: MICIMG 12:50
PROVIDERS: PCP Family Medicine; Visit Provider Family Medicine
DX: Z78.0 Asymptomatic menopausal state (principal); M85.852 Other specified disorders of bone density and structure, left thigh; M85.851 Other specified disorders of bone density and structure, right thigh
CPT/HCPCS: 77080